=== PATIENT | female | born 1990 | race American Indian/Alaskan Native ===

== ENCOUNTER 2017-07-30 19:19 | Emergency (ER) | payer SELFPAY ==
[2017-07-30 21:19] VITALS: BP 122/80
[2017-07-30 23:13] LABS: Basophils # (Auto) 0.1 K/mm3 (0.0-0.1); Basophils % (Auto) 1.1 % (0.0-1.8); Eosinophils # (Auto) 0.1 K/mm3 (0.0-0.4); Hemoglobin 13.4 gm/dl (10.1-14.3); Lymphocytes # (Auto) 2.7 K/mm3 (1.2-5.4); Lymphocytes % (Auto) 43.3 % (13.4-35.0); Mean Corpuscular HGB Conc 33 % (30-34); Mean Corpuscular Hemoglobin 27 pg (28-32); Mean Corpuscular Volume 82 fl (79-97); Monocytes # (Auto) 0.4 K/mm3 (0.0-0.8); Monocytes % (Auto) 6.9 % (0.0-7.3); Platelet Count 278 K/mm3 (140-440); Red Blood Count 5.01 M/mm3 (3.65-5.03); Red Cell Distribution Width 15.2 % (13.2-15.2)
[2017-07-31 00:04] LABS: HCG Qualitative,Urine Negative (Negative)
[2017-07-31 00:10] LABS: Bilirubin,Urine NEG (Negative); Blood,Urine NEG (Negative); Color,Urine Yellow (Yellow); Mucus,Urine FEW /HPF; Nitrite,Urine NEG (Negative); Protein,Urine <15 mg/dL mg/dL (Negative)
[2017-07-31 00:24] LABS: Alanine Aminotransferase 47 units/L (7-56); Albumin 4.3 g/dL (3.9-5); BUN/Creatinine Ratio 15; Blood Urea Nitrogen 12 mg/dL (7-17); Calcium 9.3 mg/dL (8.4-10.2); Hemolysis Index 10
== END 2017-07-31 04:13 | disposition left against medical advice (07) ==
LOC: ED 19:19
DX: R10.9 Unspecified abdominal pain (principal); Z53.21 Procedure and treatment not carried out due to patient leaving prior to being seen by health care provider
CPT/HCPCS: 36415; 80053; 81001; 81025; 85025

== ENCOUNTER 2017-10-03 19:20 | Emergency (ER) | payer SELFPAY ==
[2017-10-03 19:27] VITALS: BP 146/93
[2017-10-03 20:48] LABS: Basophils % (Auto) 0.4 % (0.0-1.8); Eosinophils % (Auto) 0.7 % (0.0-4.3); Hematocrit 40.9 % (30.3-42.9); Lymphocytes # (Auto) 2.3 K/mm3 (1.2-5.4); Lymphocytes % (Auto) 38.6 % (13.4-35.0); Mean Corpuscular HGB Conc 32 % (30-34); Mean Corpuscular Hemoglobin 26 pg (28-32); Mean Corpuscular Volume 81 fl (79-97); Monocytes # (Auto) 0.5 K/mm3 (0.0-0.8); Monocytes % (Auto) 8.5 % (0.0-7.3); Platelet Count 298 K/mm3 (140-440); Red Blood Count 5.03 M/mm3 (3.65-5.03); Red Cell Distribution Width 15.2 % (13.2-15.2)
[2017-10-03 21:22] LABS: Alanine Aminotransferase 49 units/L (7-56); Albumin 4.1 g/dL (3.9-5); BUN/Creatinine Ratio 13; Blood Urea Nitrogen 9 mg/dL (7-17); Calcium 9.1 mg/dL (8.4-10.2); Hemolysis Index 6
[2017-10-03 21:50] LABS: Bilirubin,Urine NEG (Negative); Blood,Urine NEG (Negative); Color,Urine Yellow (Yellow); Mucus,Urine FEW /HPF; Protein,Urine <15 mg/dL mg/dL (Negative); Urobilinogen,Urine < 2.0 mg/dL (<2.0); WBC,Urine < 1.0 /HPF (0.0-6.0)
--- NOTE | 2017-10-04 00:12 | Emergency Department Report ---
ED Abdominal Pain HPI - General Chief Complaint: Abdominal Pain Stated Complaint: ABD PAIN/POSSIBLE EPTOPIC PREG Source: patient Mode of arrival: Ambulatory Limitations: No Limitations - History of Present Illness Initial Comments: 27-year-old in [place] female presents to the emergency room for concerns of . Patient reports that her period is late and she is always on time. She is currently on no control. Her last menstrual period reported 2017. Patient reports that she has a history of ectopic and only has one 2. Patient reports this is done several urine test at home and all came back negative. Patient comes in today reporting she has abdominal pain and will like to have a serum test. Denies any fever chills nausea vomiting no vaginal bleeding or vaginal discharge no dysuria no hematuria or hematochezia. She reports abdominal pain is suprapubic reported a 5 out of 10. No other past medical history currently takes no medications and has no known drug allergies. -: days(s) (1) Location: suprapubic Radiation: none Severity scale (0 -10): 5 Quality: cramping Consistency: intermittent - Related Data Previous Rx's Medication Instructions Recorded Last Taken Type Promethazine [Phenergan] 25 mg PO Q6H PRN #20 tablet 08/19/13 Unknown Rx Allergies Allergy/AdvReac Type Severity Reaction Status Date / Time No Known Allergies Allergy Verified 10/03/17 19:24 ED Review of Systems ROS: Stated complaint: ABD PAIN/POSSIBLE EPTOPIC PREG Other details as noted in HPI Constitutional: denies: chills, fever Eyes: denies: eye pain, eye discharge, vision change ENT: denies: ear pain, throat pain Respiratory: denies: cough, shortness of breath, wheezing Cardiovascular: denies: chest pain, palpitations Endocrine: no symptoms reported Gastrointestinal: abdominal pain. denies: nausea, diarrhea Genitourinary: denies: urgency, dysuria, discharge Musculoskeletal: denies: back pain, joint swelling, arthralgia Skin: denies: rash, lesions Neurological: denies: headache, weakness, paresthesias Psychiatric: denies: anxiety, depression Hematological/Lymphatic: denies: easy bleeding, easy bruising ED Past Medical Hx - Past Medical History Previous Medical History?: No - Surgical History Past Surgical History?: Yes Additional Surgical History: eptopic - Social History Smoking Status: Current Every Day Smoker Substance Use Type: Alcohol - Medications Home Medications: Home Medications Medication Instructions Recorded Confirmed Last Taken Type Promethazine [Phenergan] 25 mg PO Q6H PRN #20 tablet 08/19/13 Unknown Rx ED Physical Exam - General Limitations: No Limitations General appearance: alert, in no apparent distress - Head Head exam: Present: atraumatic, normocephalic - Eye Eye exam: Present: normal appearance - ENT ENT exam: Present: mucous membranes moist - Neck Neck exam: Present: normal inspection - Respiratory Respiratory exam: Present: normal lung sounds bilaterally. Absent: respiratory distress - Cardiovascular Cardiovascular Exam: Present: regular rate, normal rhythm. Absent: systolic murmur, diastolic murmur, rubs, gallop - GI/Abdominal GI/Abdominal exam: Present: soft, normal bowel sounds - Extremities Exam Extremities exam: Present: normal inspection - Back Exam Back exam: Present: normal inspection - Neurological Exam Neurological exam: Present: alert, oriented X3 - Psychiatric Psychiatric exam: Present: normal affect, normal mood - Skin Skin exam: Present: warm, dry, intact, normal color. Absent: rash ED Course Vital Signs 10/03/17 19:24 Temperature 98.4 F Pulse Rate 98 H Respiratory 16 Rate Blood Pressure 146/93 O2 Sat by Pulse 97 Oximetry ED Medical Decision Making - Lab Data Result diagrams: 10/03/17 20:29 10/03/17 20:29 Critical care attestation.: If time is entered above; I have spent that time in minutes in the direct care of this critically ill patient, excluding procedure time. ED Disposition Clinical Impression: Negative test Abdominal pain Qualifiers: Abdominal location: lower abdomen, unspecified Qualified Code(s): R10.30 - Lower abdominal pain, unspecified Disposition: DC-01 TO HOME OR SELFCARE Is pt being admited?: No Does the pt Need Aspirin: No Condition: Stable Instructions: Abdominal Pain (ED) Additional Instructions: Please follow up with the BETTING CLERK or primary care provider for further evaluation. Referrals: PRIMARY CARE, [Primary Care Provider] - 3-[address] [facility] [Provider Group] - 3-5 Days Forms: Work/School Release Form(ED)
== END 2017-10-04 00:15 | disposition home or self-care (01) ==
LOC: ED 19:20
DX: R10.30 Lower abdominal pain, unspecified (principal); F17.200 Nicotine dependence, unspecified, uncomplicated
CPT/HCPCS: 36415; 80053; 81001; 84702; 84703; 85025

== ENCOUNTER 2018-09-08 13:11 | Emergency (ER) | payer SELFPAY ==
[2018-09-08 13:16] VITALS: BP 151/100
--- NOTE | 2018-09-08 13:23 | Emergency Department Report ---
ED ENT HPI - General Chief complaint: Earache Stated complaint: TROUBLE HEARING Time Seen by Provider: 09/08/18 13:17 Source: patient Mode of arrival: Ambulatory Limitations: No Limitations - History of Present Illness Initial comments: This is a 28-year-old female nontoxic well-in apperance with no signs of distress presents to the ED with c/o bilateral earaches. Denies any mastoid pain or tragus pain. Denies any trauma. Denies any pain radiatoin. Denies any other complaints. Denies any allergies or PMH. MD complaint: ear pain -: week(s) (1) Location: R ear, L ear Severity: mild Severity scale (0 -10): 8 Quality: aching Consistency: constant Improves with: none Worsens with: none Associated Symptoms: denies: fever, cough, gum swelling, toothache, pain with swallowing, sore throat, tinnitus, hearing loss, discharge from ear, rhinorrhea - Related Data Previous Rx's Medication Instructions Recorded Last Taken Type Promethazine [Phenergan] 25 mg PO Q6H PRN #20 tablet 08/19/13 Unknown Rx Amoxicillin [Amoxicillin TAB] 875 mg PO BID #20 tablet 09/08/18 Unknown Rx Allergies Allergy/AdvReac Type Severity Reaction Status Date / Time No Known Allergies Allergy Verified 10/03/17 19:24 ED Dental HPI - General Chief complaint: Earache Stated complaint: TROUBLE HEARING Time Seen by Provider: 09/08/18 13:17 Source: patient Mode of arrival: Ambulatory Limitations: No Limitations - Related Data Previous Rx's Medication Instructions Recorded Last Taken Type Promethazine [Phenergan] 25 mg PO Q6H PRN #20 tablet 08/19/13 Unknown Rx Amoxicillin [Amoxicillin TAB] 875 mg PO BID #20 tablet 09/08/18 Unknown Rx Allergies Allergy/AdvReac Type Severity Reaction Status Date / Time No Known Allergies Allergy Verified 10/03/17 19:24 ED Review of Systems ROS: Stated complaint: TROUBLE HEARING Other details as noted in HPI Constitutional: denies: chills, fever Eyes: denies: eye pain, eye discharge, vision change ENT: ear pain. denies: throat pain Respiratory: denies: cough, shortness of breath, wheezing Cardiovascular: denies: chest pain, palpitations Endocrine: no symptoms reported Gastrointestinal: denies: abdominal pain, nausea, diarrhea Genitourinary: denies: urgency, dysuria, discharge Musculoskeletal: denies: back pain, joint swelling, arthralgia Skin: denies: rash, lesions Neurological: denies: headache, weakness, paresthesias Psychiatric: denies: anxiety, depression Hematological/Lymphatic: denies: easy bleeding, easy bruising ED Past Medical Hx - Past Medical History Previous Medical History?: No - Surgical History Past Surgical History?: Yes Additional Surgical History: eptopic - Social History Smoking Status: Never Smoker Substance Use Type: None - Medications Home Medications: Home Medications Medication Instructions Recorded Confirmed Last Taken Type Promethazine [Phenergan] 25 mg PO Q6H PRN #20 tablet 08/19/13 Unknown Rx Amoxicillin [Amoxicillin TAB] 875 mg PO BID #20 tablet 09/08/18 Unknown Rx ED Physical Exam - General Limitations: No Limitations General appearance: alert, in no apparent distress - Head Head exam: Present: atraumatic, normocephalic - Eye Eye exam: Present: normal appearance - Expanded ENT Exam Expanded Ear exam: Present: normal external inspection TM/Canal exam: Erythema: Right TM, Bulging: Right TM Mouth exam: Present: normal external inspection Teeth exam: Present: normal inspection Throat exam: Positive: normal inspection - Neck Neck exam: Present: normal inspection, full ROM. Absent: tenderness, meningismus, lymphadenopathy - Other Other exam information: No tragus or mastroid tednerness. ED Course Vital Signs 09/08/18 13:15 Temperature 98.4 F Pulse Rate 104 H Respiratory 16 Rate Blood Pressure 151/100 [Right] O2 Sat by Pulse 100 Oximetry - Reevaluation(s) Reevaluation #1: 09/08/18 13:21 Patient is speaking in full sentences with no signs of distress noted. Critical care attestation.: If time is entered above; I have spent that time in minutes in the direct care of this critically ill patient, excluding procedure time. ED Disposition Clinical Impression: Right otitis media Qualifiers: Otitis media type: unspecified Qualified Code(s): H66.91 - Otitis media, unspecified, right ear Disposition: DC-01 TO HOME OR SELFCARE Is pt being admited?: No Does the pt Need Aspirin: No Condition: Stable Instructions: Otitis Media (ED) Additional Instructions: Follow-up with primary care doctor in 3-5 days or if symptoms worsen or continue return to the ED as soon as possible. Prescriptions: Amoxicillin [Amoxicillin TAB] 875 mg PO BID #20 tablet Referrals: PRIMARY CARE, [Referring] - 3-5 Days MADISON DE SANTIAGO MD [Staff Physician] - 3-5 Days [facility] [place] [Outside] - 3-5 Days [facility] [Outside] - 3-5 Days Forms: Work/School Release Form(ED)
== END 2018-09-08 13:35 | disposition home or self-care (01) ==
LOC: ED 13:11
DX: H66.91 Otitis media, unspecified, right ear (principal)
CPT/HCPCS: 99282